=== PATIENT | male | born 1945 | race Caucasian/White ===

== ENCOUNTER 2017-09-25 07:29 | Day surgery (SDC) | payer MEDICARE, OTHER ==
[2017-09-23 11:27] VITALS: BMI 33.0
[~2017-09-25 07:29] MED LIST: LIDOCAINE 1% 20 ML VIAL (10MG/ML) FOR IV START INTRADERMA PRN
[2017-09-25 07:55] VITALS: RESP 16; TEMP 97.4
[2017-09-25 08:09] LABS: Glucose,Whole Blood 88 mg/dL (75-99)
[2017-09-25] MEDS: LACTATED RINGERS 1,000 ML IV SCH ×2 (08:14→09:49)
[2017-09-25] MEDS ORDERED: PROPOFOL 10 MG/ML 20 ML VIAL IV ONE (09:49)
[2017-09-25] MEDS ORDERED: GLUCAGON 1 MG/ML VIAL ONE (09:49)
--- NOTE | 2017-09-25 09:56 | P.GSHP ---
History of Present Illness H&P Date: 09/25/17 Chief Complaint: Anemia This a 72-year-old male who has had issues with anemia. Patient presents today for colonoscopy to evaluate for source of GI bleed. 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 History of Any Multi-Drug Resistant Organisms: None Reported Past Surgical History: Appendectomy, Heart Catheterization With Stent, Joint Replacement Additional Past Surgical History / Comment(s): heart cath with stents x3,lt carotid,lt hip replacement,rt knee replacement Past Anesthesia/Blood Transfusion Reactions: No Reported Reaction Date of Last Stent Placement:: 1999 Smoking Status: Former smoker - Past Family History Mother Family Medical History: No Reported History Medications and Allergies Home Medications Medication Instructions Recorded Confirmed Type Allopurinol [Zyloprim] 300 mg PO HS 09/23/17 09/25/17 History Aspirin 81 mg PO DAILY 09/23/17 09/25/17 History Atorvastatin Calcium [Lipitor] 40 mg PO DAILY 09/23/17 09/25/17 History Clopidogrel [Plavix] 75 mg PO DAILY 09/23/17 09/25/17 History Ferrous Sulfate [Feosol] 325 mg PO BID 09/23/17 09/25/17 History Finasteride [Proscar] 5 mg PO DAILY 09/23/17 09/25/17 History Lisinopril [Zestril] 5 mg PO QAM 09/23/17 09/25/17 History Metoprolol Tartrate [Lopressor] 25 mg PO BID 09/23/17 09/25/17 History Multivitamins, Thera [Multivitamin 1 tab PO DAILY 09/23/17 09/25/17 History (formulary)] Pantoprazole Sodium [Protonix] 40 mg PO HS 09/23/17 09/25/17 History Pioglitazone HCl 45 mg PO DAILY 09/23/17 09/25/17 History Spironolactone 50 mg PO Q2D 09/23/17 09/25/17 History metFORMIN HCL [Glucophage] 500 mg PO BID 09/23/17 09/25/17 History Allergies Allergy/AdvReac Type Severity Reaction Status Date / Time No Known Allergies Allergy Verified 09/25/17 07:43 Surgical - Exam Vital Signs Temp Pulse Resp BP Pulse Ox 97.4 F L 78 16 132/63 98 09/25/17 07:54 09/25/17 07:54 09/25/17 07:54 09/25/17 07:54 09/25/17 07:54 - General well developed, no distress - Eyes PERRL - ENT normal pinna - Neck no masses - Respiratory normal expansion - Cardiovascular Rhythm: regular - Abdomen Abdomen: soft, non tender Assessment and Plan Assessment: Anemia, possible GI bleed. We'll perform EGD and colonoscopy.
--- NOTE | 2017-09-25 10:23 | P.OP ---
Date of Procedure: 09/25/17 Preoperative Diagnosis: Anemia Postoperative Diagnosis: Mild antral gastritis No evidence of hiatal hernia. No evidence of upper GI bleed. Diverticulosis No evidence of lower GI bleed Procedure(s) Performed: EGD Colonoscopy Anesthesia: MAC Surgeon: Philipp Evans Pathology: other (Antrum) Condition: stable Disposition: PACU Description of Procedure: The patient's placed on the operative table in the supine position. He received IV sedation. Digital rectal exam was performed which revealed a few external hemorrhoids. Flexible colonoscope was then placed patient anus passed throughout the colon. The cecum could not be visualized secondary to tortuosity valve. Several times made to maneuver the scope into the cecum, this was impossible due to tortuosity the bowel.. Scope was then withdrawn. The visualized right colon appeared normal. The transverse colon was normal. The descending colon was normal. In the sigmoid colon a few scattered diverticula. Scope was then brought back the rectum and this appeared normal. There is no incision any lower GI bleed. Next the gastroscope was placed in the oropharynx and passed into the esophagus and into the stomach. The scope was then placed through the pylorus. The first and second portion of the duodenum appeared normal. The scope was then brought back the antrum this appeared mildly inflamed. A biopsies was performed. The scope was retroflexed and remainder of the stomach appeared normal. There is no evidence of a hiatal hernia. There is no evidence of any upper GI bleed. The scope was then brought back into the distal esophagus. The GE junction was at 47 is. The distal esophagus appeared normal. The proximal esophagus. Normal. Scope was withdrawn for patient. Summary findings no evidence of upper or lower GI bleed. Cecum not visualized.
[2017-09-25 10:42] VITALS: BP 134/52; PULSE 60
== END 2017-09-25 11:16 | disposition home or self-care (01) ==
LOC: ORWHC2ENDO 07:29
PROVIDERS: ATTEND Surgery
DX: K29.50 Unspecified chronic gastritis without bleeding (principal); K57.30 Diverticulosis of large intestine without perforation or abscess without bleeding; K64.4 Residual hemorrhoidal skin tags; Q43.8 Other specified congenital malformations of intestine; D50.9 Iron deficiency anemia, unspecified; I25.10 Atherosclerotic heart disease of native coronary artery without angina pectoris; I11.0 Hypertensive heart disease with heart failure; I50.9 Heart failure, unspecified; E11.9 Type 2 diabetes mellitus without complications; K21.9 Gastro-esophageal reflux disease without esophagitis; E78.5 Hyperlipidemia, unspecified; I69.398 Other sequelae of cerebral infarction; G62.9 Polyneuropathy, unspecified; R43.8 Other disturbances of smell and taste; Z95.5 Presence of coronary angioplasty implant and graft; Z79.84 Long term (current) use of oral hypoglycemic drugs; Z79.02 Long term (current) use of antithrombotics/antiplatelets; Z79.82 Long term (current) use of aspirin; Z79.899 Other long term (current) drug therapy; Z87.891 Personal history of nicotine dependence
CPT/HCPCS: 88305; 88342; 45378; 43239; J1610; J2704

== ENCOUNTER 2017-10-09 07:42 | Day surgery (SDC) | payer MEDICARE, OTHER ==
[2017-10-03 12:01] VITALS: BMI 33.0
[~2017-10-09 07:42] MED LIST changes: +DEXAMETHASONE SOD PHOSPHATE 10 MG/ML 1 ML VIAL IV ONE; +HEPARIN SODIUM,PORCINE 5,000 UNIT/ML 1 ML VIAL SQ ONE; +LACTATED RINGERS 1,000 ML IV SCH; +MIDAZOLAM 2 MG/2 ML VIAL IV PRN; +ONDANSETRON 4 MG/2 ML VIAL IVP ONE; +SCOPOLAMINE 1.5MG/72HR PATCH TRANSDERM ONE; +ceFAZolin IN SWFI 2 GM/20 ML SYRINGE IVP ONE
--- NOTE | 2017-10-09 08:41 | P.GSHP ---
History of Present Illness H&P Date: 10/09/17 Chief Complaint: Right upper quadrant pain This a 72-year-old male referred from Dr. Adriane jarrett. Patient presents today for laparoscopic cholecystectomy. He's had some complaints of abdominal pain. His recent CAT scan shows evidence of cholelithiasis. Past Medical History Past Medical History: Coronary Artery Disease (CAD), Heart Failure, CVA/TIA, Diabetes Mellitus, GERD/Reflux, Hyperlipidemia, Hypertension Additional Past Medical History / Comment(s): Hx of anemia,CVA X3/Rt sided neuropathy but has movement and change in tastebuds History of Any Multi-Drug Resistant Organisms: None Reported Past Surgical History: Appendectomy, Heart Catheterization With Stent, Joint Replacement Additional Past Surgical History / Comment(s): heart cath with stents x3,lt carotid,lt hip replacement,rt knee replacement; colonoscopy Past Anesthesia/Blood Transfusion Reactions: No Reported Reaction Date of Last Stent Placement:: 1999 Smoking Status: Current some day smoker - Past Family History Mother Family Medical History: No Reported History Medications and Allergies Home Medications Medication Instructions Recorded Confirmed Type Allopurinol [Zyloprim] 300 mg PO HS 09/23/17 10/03/17 History Aspirin 81 mg PO DAILY 09/23/17 10/09/17 History Atorvastatin Calcium [Lipitor] 40 mg PO HS 09/23/17 10/03/17 History Clopidogrel [Plavix] 75 mg PO DAILY 09/23/17 10/09/17 History Ferrous Sulfate [Feosol] 325 mg PO BID 09/23/17 10/03/17 History Finasteride [Proscar] 5 mg PO DAILY 09/23/17 10/09/17 History Lisinopril [Zestril] 5 mg PO QAM 09/23/17 10/03/17 History Metoprolol Tartrate [Lopressor] 25 mg PO BID 09/23/17 10/03/17 History Multivitamins, Thera [Multivitamin 1 tab PO DAILY 09/23/17 10/09/17 History (formulary)] Pantoprazole Sodium [Protonix] 40 mg PO HS 09/23/17 10/03/17 History Pioglitazone HCl 45 mg PO HS 09/23/17 10/09/17 History Spironolactone 50 mg PO Q2D 09/23/17 10/09/17 History metFORMIN HCL [Glucophage] 500 mg PO BID 09/23/17 10/03/17 History Allergies Allergy/AdvReac Type Severity Reaction Status Date / Time No Known Allergies Allergy Verified 10/03/17 11:54 Surgical - Exam Vital Signs Temp Pulse Resp BP Pulse Ox 97.8 F 55 L 18 127/64 100 10/09/17 08:33 10/09/17 08:33 10/09/17 08:33 10/09/17 08:33 10/09/17 08:33 - General well developed, no distress - Eyes PERRL - ENT normal pinna - Neck no masses - Respiratory normal expansion - Cardiovascular Rhythm: regular - Abdomen Abdomen: soft, non tender Assessment and Plan Assessment: Cholelithiasis Chronic cholecystitis We'll perform laparoscopic cholecystectomy.
[2017-10-09 09:03] LABS: Glucose,Whole Blood 129 mg/dL (75-99)
[2017-10-09] MEDS ORDERED: SUCCINYLCHOLINE CHLORIDE 100 MG/5 ML SYR IV ONE (09:03)
[2017-10-09] MEDS ORDERED: ROCURONIUM BROMIDE 10 MG/ML 10 ML VIAL IV ONE (09:03)
[2017-10-09] MEDS ORDERED: fentaNYL (PF) 50 MCG/ML 2 ML AMP ONE (09:03)
[2017-10-09] MEDS ORDERED: MIDAZOLAM 2 MG/2 ML VIAL ONE (09:03)
[2017-10-09] MEDS ORDERED: LIDOCAINE 1% INJ 10MG/ML (20 ML MDV) ONE (09:03)
[2017-10-09] MEDS ORDERED: PROPOFOL 10 MG/ML 20 ML VIAL IV ONE (09:03)
[2017-10-09] MEDS ORDERED: NEOSTIGMINE 1 MG/ML 10 ML VIAL ONE (09:03)
[2017-10-09] MEDS ORDERED: KETOROLAC 30 MG/ML 1 ML VIAL ONE (09:03)
[2017-10-09] MEDS ORDERED: GLYCOPYRROLATE 0.2 MG/ML 2 ML VIAL ONE (09:03)
[2017-10-09] MEDS ORDERED: BUPIVACAINE (PF) 0.25% 30 ML VIAL SQ ONE (09:24)
--- NOTE | 2017-10-09 09:52 | P.OP ---
Date of Procedure: 10/09/17 Preoperative Diagnosis: Cholecystitis Cholelithiasis Postoperative Diagnosis: Cholecystitis Cholelithiasis Procedure(s) Performed: Laparoscopic cholecystectomy Anesthesia: MILANA Surgeon: Philipp Evans Estimated Blood Loss (ml): 5 Pathology: other (Gallbladder) Condition: stable Disposition: PACU Description of Procedure: The patient was placed on the operating table. The patient received a general endotracheal tube anesthesia. The patients abdomen was prepped and draped in the usual sterile fashion. Through an infraumbilical stab incision, the fascia of the anterior abdominal wall was grasped with a pair of Kochers and then the Veress needle was placed in the peritoneal cavity. Position of the Veress needle was confirmed with positive drop test. The abdomen was then insufflated. After adequate insufflation, the 10 mm trocar was placed in the peritoneal cavity. Following this the laparoscope was placed in the peritoneal cavity. The patient was placed in the head-up, right side up position and then a 5 mm trocar was placed in the right lateral and right subcostal position under direct visualization. A 8 mm trocar was placed in the epigastric position. The gallbladder was grasped in the fundus and infundibulum. Traction on the gallbladder was placed in the lateral and the cephalad positions. The triangle of Calot was visualized.. The cystic duct was bluntly dissected until the union of the cystic duct and common bile duct was seen. The cystic duct was then divided and sealed with the Harmonic scissors. A PDS Endoloop was then placed throughout the cystic duct stump. The cystic artery divided and sealed with the Harmonic scissors. The gallbladder was then removed from the liver bed using Harmonic scissors. The gallbladder was then extracted through the epigastric port site. Operative field was checked for any bleeding spots and Harmonic scissors was used to coagulate the liver bed. The abdomen was irrigated. The trocars were removed. The skin was closed using interrupted 3-0 Vicryl suture. Dermabond dressing were applied. The patient tolerated the procedure well.
[2017-10-09] MEDS: HYDROmorphone 0.5 MG/0.5 ML SYRINGE IVP PRN ×2 (10:00→10:10)
[2017-10-09 10:07] VITALS: TEMP 97.2
[2017-10-09 11:59] VITALS: BP 135/60; PULSE 58; RESP 18
== END 2017-10-09 12:31 | disposition home or self-care (01) ==
LOC: OR 07:42
PROVIDERS: ATTEND Surgery
DX: K80.10 Calculus of gallbladder with chronic cholecystitis without obstruction (principal); K21.9 Gastro-esophageal reflux disease without esophagitis; I25.10 Atherosclerotic heart disease of native coronary artery without angina pectoris; I11.0 Hypertensive heart disease with heart failure; I50.9 Heart failure, unspecified; F17.200 Nicotine dependence, unspecified, uncomplicated; I69.398 Other sequelae of cerebral infarction; Z95.5 Presence of coronary angioplasty implant and graft; E78.5 Hyperlipidemia, unspecified; E11.9 Type 2 diabetes mellitus without complications; Z79.84 Long term (current) use of oral hypoglycemic drugs; Z79.02 Long term (current) use of antithrombotics/antiplatelets; Z79.82 Long term (current) use of aspirin; Z79.899 Other long term (current) drug therapy
CPT/HCPCS: 88304; 47562; J2250; J1644; J1100; J2710; J2405; J2001; J3010; J1885; J0330; J2704; J1170; J0690